=== PATIENT | female | born 1965 | race African-American/Black ===

== ENCOUNTER 2023-07-27 03:49 | Emergency (ER) | payer OTHER ==
[2023-07-27 03:56] VITALS: BMI 30.2
[2023-07-27] MEDS: LIDOCAINE 5% TOPICAL PATCH TP ONE (05:45)
[2023-07-27] MEDS: ACETAMINOPHEN 325 MG TABLET (FP) PO ONE (05:46)
[2023-07-27] MEDS ORDERED: ACETAMINOPHEN 325 MG TABLET (FP) ONE (05:47)
[2023-07-27] MEDS ORDERED: LIDOCAINE 4% PATCH TP ONE (05:48)
[2023-07-27] MEDS: morphine CARPU-JECT 2 MG/1 ML DISP.SYRIN IVPUSH ONE ×2 (06:59→10:49)
[2023-07-27 07:24] LABS: BASO % 1.3 % (0-2.0); EOS % 0.1 % (0-4.5); HEMATOCRIT 31.8 % (32.4-45.2); HEMOGLOBIN 10.2 GM/dL (10.7-15.3); LYMPH % 12.8 % (8-40); MCH 27.4 pg (25.7-33.7); MCHC 32.2 g/dl (32.0-36.0); MEAN CELL VOLUME 85.1 fl (80-96); MEAN PLT VOLUME 6.8 fl (7.5-11.1); MONO % 4.9 % (3.8-10.2); NEUT % 80.9 % (42.8-82.8); PLATELET COUNT 352 10^3/uL (134-434); RBC 3.74 M/mm3 (3.60-5.2); RDW 18.2 % (11.6-15.6); WHITE BLOOD COUNT 10.3 K/mm3 (4.0-10.0)
[2023-07-27 07:39] LABS: POTASSIUM 3.5 mmol/L (3.5-5.1)
[2023-07-27 07:41] LABS: ALBUMIN 3.2 g/dl (3.4-5.0); BLOOD UREA NITROGEN 8.6 mg/dL (7-18)
[2023-07-27 07:44] LABS: CREATININE 0.5 mg/dL (0.55-1.3)
[2023-07-27 07:46] LABS: BILIRUBIN,TOTAL 0.4 mg/dL (0.2-1); TOT PROT 7.9 g/dl (6.4-8.2)
[2023-07-27 07:49] LABS: N-TERMINAL BNP 474.4 pg/ml (5-125)
[2023-07-27 08:32] LABS: INR 1.13 (0.83-1.09); PROTHROMBIN TIME (PATIENT) 12.7 SEC (9.7-13.0)
[2023-07-27 08:50] VITALS: TEMP 98.4
[2023-07-27 12:41] VITALS: BP 170/91; PULSE 105; RESP 20
[2023-07-27] MEDS ORDERED: KETOROLAC TROMETHAMINE 15 MG/ML VIAL ONE (13:24)
[2023-07-27] MEDS: KETOROLAC TROMETHAMINE 15 MG/ML VIAL IVPUSH ONE (13:28)
== END 2023-07-27 14:38 | disposition short-term general hospital (02) ==
LOC: JER 03:49
DX: R07.81 Pleurodynia (principal); W01.0XXA Fall on same level from slipping, tripping and stumbling without subsequent striking against object, initial encounter
CPT/HCPCS: 0241U-QW; 36415; 71045-TC-FY; 71260-TC; 74177-TC; 80053; 83880; 84484; 85025; 85610; 93005; 93010; 99285-25

== ENCOUNTER 2023-08-07 03:18 | Observation (INO) | payer OTHER ==
[2023-08-07 04:27] LABS: BASO % 0.9 % (0-2.0); EOS % 1.6 % (0-4.5); HEMATOCRIT 30.8 % (32.4-45.2); HEMOGLOBIN 10.1 GM/dL (10.7-15.3); LYMPH % 28.9 % (8-40); MCH 27.2 pg (25.7-33.7); MCHC 32.7 g/dl (32.0-36.0); MEAN CELL VOLUME 83.2 fl (80-96); MEAN PLT VOLUME 6.4 fl (7.5-11.1); MONO % 13.4 % (3.8-10.2); NEUT % 55.2 % (42.8-82.8); PLATELET COUNT 350 10^3/uL (134-434); RDW 18.9 % (11.6-15.6); WHITE BLOOD COUNT 7.1 K/mm3 (4.0-10.0)
[2023-08-07 04:37] LABS: INR 2.89 (0.83-1.09); PROTHROMBIN TIME (PATIENT) 31.7 SEC (9.7-13.0)
[2023-08-07 04:39] LABS: ACTIVATED PTT 45.8 SECONDS (25.2-36.5)
[2023-08-07 04:46] LABS: POTASSIUM 3.4 mmol/L (3.5-5.1)
[2023-08-07 04:48] LABS: ALBUMIN 3.1 g/dl (3.4-5.0); BLOOD UREA NITROGEN 7.9 mg/dL (7-18); CALCIUM 8.8 mg/dL (8.5-10.1)
[2023-08-07 04:52] LABS: CREATININE 0.6 mg/dL (0.55-1.3)
[2023-08-07 04:53] LABS: BILIRUBIN,TOTAL 0.5 mg/dL (0.2-1); TOT PROT 7.7 g/dl (6.4-8.2)
[2023-08-07] MEDS ORDERED: FUROSEMIDE 40 MG/4 ML INJECTABLE VIAL ONE (06:17)
[2023-08-07] MEDS ORDERED: POTASSIUM CHLORIDE ORAL LIQUID 20 MEQ/15 ML ONE (06:17)
[2023-08-07] MEDS: POTASSIUM CHLORIDE ORAL LIQUID 20 MEQ/15 ML PO ONE (06:29)
[2023-08-07] MEDS: FUROSEMIDE 40 MG/4 ML INJECTABLE VIAL IVPUSH ONE (06:29)
[2023-08-07] MEDS ORDERED: POLYETHYLENE GLYCOL (HEALTHYLAX) 3350 17 GM PACKET PO PRN (10:02)
[2023-08-07] MEDS ORDERED: ALBUTEROL SO4 HFA INHALER IH PRN ×3 (10:02→10:58)
[2023-08-07] MEDS: FUROSEMIDE 40 MG/4 ML INJECTABLE VIAL IVPUSH SCH (11:13)
[2023-08-07] MEDS: RIVAROXABAN 20 MG TABLET PO SCH (11:13)
[2023-08-07] MEDS: NICOTINE 14 MG/24 HOURS TOPICAL PATCH TD SCH (14:22)
[2023-08-07] MEDS: METHOCARBAMOL 500 MG TABLET PO PRN (18:32)
[2023-08-07] MEDS: ACETAMINOPHEN 1000 MG/100 ML BAG IVPB ONE (19:26)
[2023-08-07] MEDS: TIOTROPIUM BROMIDE 2.5 MCG (SPIRIVA) RESPIMAT INHALER IH SCH (21:27)
[2023-08-07] MEDS: ATORVASTATIN CA 80 MG TABLET (FP) PO SCH (21:27)
[2023-08-08 06:45] VITALS: RESP 18
[2023-08-08 08:14] LABS: BASO % 0.8 % (0-2.0); EOS % 1.1 % (0-4.5); HEMATOCRIT 34.1 % (32.4-45.2); HEMOGLOBIN 10.9 GM/dL (10.7-15.3); LYMPH % 25.6 % (8-40); MCH 26.6 pg (25.7-33.7); MCHC 32.1 g/dl (32.0-36.0); MEAN PLT VOLUME 6.8 fl (7.5-11.1); MONO % 13.2 % (3.8-10.2); NEUT % 59.3 % (42.8-82.8); PLATELET COUNT 380 10^3/uL (134-434); RBC 4.11 M/mm3 (3.60-5.2); RDW 19.6 % (11.6-15.6); WHITE BLOOD COUNT 8.4 K/mm3 (4.0-10.0)
[2023-08-08 08:38] LABS: POTASSIUM 3.2 mmol/L (3.5-5.1)
[2023-08-08 08:40] LABS: ALBUMIN 3.1 g/dl (3.4-5.0); BLOOD UREA NITROGEN 9.1 mg/dL (7-18); CALCIUM 9.1 mg/dL (8.5-10.1); MAGNESIUM 1.8 mg/dL (1.8-2.4)
[2023-08-08 08:42] LABS: CREATININE 0.5 mg/dL (0.55-1.3)
[2023-08-08 08:44] LABS: PHOSPHOROUS 4.4 mg/dL (2.5-4.9)
[2023-08-08 08:45] LABS: TOT PROT 7.9 g/dl (6.4-8.2)
[2023-08-08 08:50] LABS: BILIRUBIN,TOTAL 0.8 mg/dL (0.2-1)
[2023-08-08] MEDS: LORATADINE 10 MG TABLET PO SCH (09:58)
[2023-08-08] MEDS: ASCORBIC ACID 250 MG TABLET (FP) PO SCH (09:58)
[2023-08-08] MEDS: CLOPIDOGREL BISULFATE 75 MG TABLET (FP) PO SCH (09:58)
[2023-08-08] MEDS: FERROUS SO4 325 MG TABLET (FP) PO SCH (09:58)
[2023-08-08] MEDS: PANTOPRAZOLE 40 MG TABLET PO SCH (09:59)
[2023-08-08] MEDS: MAG HYDROX/AL HYDROX/SIMETH 30 ML UNIT-DOSE CUP PO ONE (10:30)
[2023-08-08] MEDS: POTASSIUM CHLORIDE ORAL LIQUID 20 MEQ/15 ML PO ONE (10:59)
[2023-08-08] MEDS: ACETAMINOPHEN 325 MG TABLET (FP) PO PRN (11:45)
[2023-08-08] MEDS: SODIUM CHLORIDE 250 ML IV STA (11:46)
[2023-08-08] MEDS: KCL 10 MEQ IVPB 10 MEQ/100 ML INFUS.BAG IVPB SCH (11:47)
[2023-08-08 13:56] VITALS: BP 109/75; PULSE 97; TEMP 98.2
[2023-08-08] MEDS ORDERED: RIVAROXABAN 20 MG TABLET PO SCH (18:00)
== END 2023-08-08 17:03 | disposition home or self-care (01) ==
LOC: JER 03:18 → JERBED 07:50 → UNDOADMOB 07:50 → INTOOBSV 07:50 → JERBED 08:37 → J5S 08:37 → JERBED 09:54 → J5S 16:25
PROVIDERS: ADMIT Internal Medicine
PROC: 3E033GC Introduction of Other Therapeutic Substance into Peripheral Vein, Percutaneous Approach (ICD-10-PCS; principal; 2023-08-07)
PROC: 3E033NZ Introduction of Analgesics, Hypnotics, Sedatives into Peripheral Vein, Percutaneous Approach (ICD-10-PCS; 2023-08-07)
PROC: 3E0337Z Introduction of Electrolytic and Water Balance Substance into Peripheral Vein, Percutaneous Approach (ICD-10-PCS; 2023-08-07)
DX: I50.33 Acute on chronic diastolic (congestive) heart failure (principal); R06.02 Shortness of breath; I25.10 Atherosclerotic heart disease of native coronary artery without angina pectoris; J44.9 Chronic obstructive pulmonary disease, unspecified; M19.90 Unspecified osteoarthritis, unspecified site; I48.91 Unspecified atrial fibrillation; Z79.01 Long term (current) use of anticoagulants; R06.00 Dyspnea, unspecified; Z72.0 Tobacco use
CPT/HCPCS: 0241U-QW; 36415; 71045-TC-FY; 71046-TC-FY; 80053; 83735; 83880; 84100; 84436; 84443; 84484; 85025; 85610; 85730; 86850; 86900; 86901; 87899; 93005; 93010; 93306-TC; 93971-TC; 96361; 96374; 96375; 96376; 97116-GP; 97161-GP; 99285-25; G0378; J0131

== ENCOUNTER 2024-04-27 13:02 | Emergency (ER) | payer OTHER ==
[2024-04-27 15:19] VITALS: BP 135/75; PULSE 92; RESP 18; TEMP 98; BMI 27.6
== END 2024-04-27 15:23 | disposition home or self-care (01) ==
LOC: JER 13:02
DX: R13.10 Dysphagia, unspecified (principal)
CPT/HCPCS: 99283-25

== ENCOUNTER 2024-05-04 15:57 | Inpatient (IN) | payer OTHER ==
[2024-05-05] MEDS: POTASSIUM CHLORIDE 40 MEQ in SODIUM CHLORIDE 1,000 ML IV SCH (01:48)
[2024-05-05] MEDS: FLU VACCINE (FLULAVAL) PF 45 MCG/0.5 ML SYRINGE 2024-2025 IM ONE (01:49)
[2024-05-05] MEDS ORDERED: ETOMIDATE 20 MG/10 ML VIAL IVPUSH ONE (09:22)
[2024-05-05 09:36] LABS: HEMATOCRIT 37.4 % (32.4-45.2); HEMOGLOBIN 11.8 GM/dL (10.7-15.3); MCHC 31.7 g/dl (32.0-36.0); MEAN CELL VOLUME 85.3 fl (80-96); PLATELET COUNT 255 10^3/uL (134-434); RBC 4.38 M/mm3 (3.60-5.2); RDW 20.7 % (11.6-15.6); WHITE BLOOD COUNT 5.8 K/mm3 (4.0-10.0)
[2024-05-05] MEDS: FAMOTIDINE 20 MG/50 ML IVPB 20 MG/50 ML MG IVPB ONE (09:40)
[2024-05-05 09:45] LABS: INR 1.13 (0.83-1.09); POTASSIUM 3.4 mmol/L (3.5-5.1); PROTHROMBIN TIME (PATIENT) 12.4 SEC (9.7-13.0)
[2024-05-05 09:47] LABS: ALBUMIN 3.1 g/dl (3.4-5.0); BLOOD UREA NITROGEN 8.5 mg/dL (7-18); MAGNESIUM 1.8 mg/dL (1.8-2.4)
[2024-05-05 09:50] LABS: CREATININE 0.5 mg/dL (0.55-1.3)
[2024-05-05 09:51] LABS: PHOSPHOROUS 3.4 mg/dL (2.5-4.9)
[2024-05-05 09:52] LABS: BILIRUBIN,TOTAL 0.8 mg/dL (0.2-1); TOT PROT 8.2 g/dl (6.4-8.2)
[2024-05-05] MEDS ORDERED: ENOXAPARIN NA (PORCINE) 40 MG/0.4 ML DISP.SYRIN SQ SCH (10:00)
[2024-05-05] MEDS ORDERED: ACETAMINOPHEN INJECTION 100 ML ONE (13:01)
[2024-05-05] MEDS: ACETAMINOPHEN 1000 MG/100 ML BAG IVPB ONE ×2 (13:02→21:07)
[2024-05-05] MEDS: ONDANSETRON 4 MG/2 ML VIAL IVPB ONE (16:31)
[2024-05-05] MEDS: ACETAMINOPHEN 1000 MG/100 ML BAG IVPB PRN (17:26)
[2024-05-05] MEDS ORDERED: hydrALAZINE HCL 20 MG/ML VIAL IVPUSH ONE (18:15)
[2024-05-05] MEDS ORDERED: hydrALAZINE HCL 20 MG/ML VIAL IVPUSH PRN (18:17)
[2024-05-05] MEDS ORDERED: ACETAMINOPHEN 1000 MG/100 ML BAG IVPB PRN (18:18)
[2024-05-05] MEDS: KCL 10 MEQ IVPB 10 MEQ/100 ML INFUS.BAG IVPB SCH (18:18)
[2024-05-05] MEDS: hydrALAZINE HCL 20 MG/ML VIAL IVPUSH ONE (18:50)
[2024-05-05] MEDS: amLODIPine BESYLATE 5 MG TABLET (FP) PO SCH (21:07)
[2024-05-05] MEDS ORDERED: MAG HYDROX/AL HYDROX/SIMETH 30 ML UNIT-DOSE CUP PO PRN (21:08)
[2024-05-05] MEDS: ONDANSETRON 4 MG/2 ML VIAL IVPUSH ONE (22:39)
[2024-05-05] MEDS: PANTOPRAZOLE SODIUM 40 MG VIAL IVPUSH SCH (23:11)
[2024-05-06 09:29] LABS: BASO % 0.5 % (0-2.0); EOS % 0.1 % (0-4.5); HEMATOCRIT 39.3 % (32.4-45.2); HEMOGLOBIN 12.8 GM/dL (10.7-15.3); LYMPH % 14.4 % (8-40); MCHC 32.6 g/dl (32.0-36.0); MEAN CELL VOLUME 82.9 fl (80-96); MEAN PLT VOLUME 7.9 fl (7.5-11.1); MONO % 11.1 % (3.8-10.2); NEUT % 73.9 % (42.8-82.8); PLATELET COUNT 308 10^3/uL (134-434); POTASSIUM 3.4 mmol/L (3.5-5.1); RBC 4.74 M/mm3 (3.60-5.2); RDW 19.9 % (11.6-15.6); WHITE BLOOD COUNT 10.2 K/mm3 (4.0-10.0)
[2024-05-06 09:31] LABS: CALCIUM 9.3 mg/dL (8.5-10.1); MAGNESIUM 1.3 mg/dL (1.8-2.4)
[2024-05-06 09:33] LABS: ALBUMIN 3.2 g/dl (3.4-5.0); BLOOD UREA NITROGEN 7.5 mg/dL (7-18)
[2024-05-06 09:35] LABS: CREATININE 0.5 mg/dL (0.55-1.3)
[2024-05-06 09:36] LABS: PHOSPHOROUS 3.4 mg/dL (2.5-4.9); TOT PROT 8.5 g/dl (6.4-8.2)
[2024-05-06 09:37] LABS: BILIRUBIN,TOTAL 0.7 mg/dL (0.2-1)
[2024-05-06] MEDS: LISINOPRIL 10 MG TABLET PO SCH (10:12)
[2024-05-06 11:40] VITALS: BMI 25.7
[2024-05-06] MEDS: POTASSIUM CHLORIDE 40 MEQ in SODIUM CHLORIDE 1,000 ML IV SCH (12:40)
[2024-05-06] MEDS: AMINO ACIDS 4.25%/D5W 1,000 ML IV SCH (17:32)
[2024-05-06] MEDS: MAGNESIUM 2GM/50ML STERILE WATER IVPB IVPB ONE (18:13)
[2024-05-06] MEDS: POTASSIUM CHLORIDE 20 MEQ in AMINO ACIDS 4.25%/D5W 1,000 ML IV SCH (19:24)
[2024-05-06] MEDS: HEPARIN NA (PORCINE) 5,000 UNITS/ML 1ML VIAL SQ SCH (21:23)
[2024-05-06] MEDS: ATORVASTATIN CA 80 MG TABLET (FP) PO SCH (21:23)
[2024-05-07 07:59] LABS: BASO % 0.6 % (0-2.0); EOS % 0.2 % (0-4.5); HEMATOCRIT 38.5 % (32.4-45.2); LYMPH % 13.9 % (8-40); MCH 26.5 pg (25.7-33.7); MCHC 31.2 g/dl (32.0-36.0); MEAN CELL VOLUME 84.9 fl (80-96); MEAN PLT VOLUME 8.2 fl (7.5-11.1); MONO % 10.7 % (3.8-10.2); NEUT % 74.6 % (42.8-82.8); PLATELET COUNT 296 10^3/uL (134-434); RBC 4.54 M/mm3 (3.60-5.2); RDW 20.2 % (11.6-15.6); WHITE BLOOD COUNT 9.3 K/mm3 (4.0-10.0)
[2024-05-07 08:22] LABS: POTASSIUM 3.4 mmol/L (3.5-5.1)
[2024-05-07 08:28] LABS: BLOOD UREA NITROGEN 13.6 mg/dL (7-18)
[2024-05-07 08:29] LABS: ALBUMIN 2.8 g/dl (3.4-5.0); CALCIUM 8.8 mg/dL (8.5-10.1)
[2024-05-07 08:30] LABS: CREATININE 0.6 mg/dL (0.55-1.3)
[2024-05-07 08:32] LABS: BILIRUBIN,TOTAL 0.7 mg/dL (0.2-1); TOT PROT 7.4 g/dl (6.4-8.2)
[2024-05-07] MEDS: ONDANSETRON 4 MG/2 ML VIAL IVPUSH ONE (09:56)
[2024-05-07] MEDS: KCL 10 MEQ IVPB 10 MEQ/100 ML INFUS.BAG IVPB SCH (16:27)
[2024-05-08 06:13] VITALS: RESP 16
[2024-05-08 08:43] LABS: EOS % 0.8 % (0-4.5); HEMATOCRIT 37.9 % (32.4-45.2); HEMOGLOBIN 11.6 GM/dL (10.7-15.3); LYMPH % 15.2 % (8-40); MCH 25.8 pg (25.7-33.7); MCHC 30.7 g/dl (32.0-36.0); MEAN PLT VOLUME 8.2 fl (7.5-11.1); MONO % 12.5 % (3.8-10.2); NEUT % 70.5 % (42.8-82.8); PLATELET COUNT 299 10^3/uL (134-434); RBC 4.51 M/mm3 (3.60-5.2); RDW 19.8 % (11.6-15.6); WHITE BLOOD COUNT 8.6 K/mm3 (4.0-10.0)
[2024-05-08 09:14] LABS: CALCIUM 8.8 mg/dL (8.5-10.1)
[2024-05-08 09:16] LABS: ALBUMIN 2.7 g/dl (3.4-5.0); BLOOD UREA NITROGEN 14.6 mg/dL (7-18); MAGNESIUM 1.8 mg/dL (1.8-2.4)
[2024-05-08 09:18] LABS: CREATININE 0.4 mg/dL (0.55-1.3); TOT PROT 7.2 g/dl (6.4-8.2)
[2024-05-08 09:42] LABS: POTASSIUM 3.3 mmol/L (3.5-5.1)
[2024-05-08 11:20] VITALS: BP 100/60; PULSE 97; TEMP 98.3
== END 2024-05-08 12:30 | disposition home or self-care (01) | DRG 240 ==
LOC: JER 15:57 → JERBED 19:23 → OBSVTOIN 19:23 → J7W 20:03
PROVIDERS: ADMIT Internal Medicine
PROC: 0DB58ZX Excision of Esophagus, Via Natural or Artificial Opening Endoscopic, Diagnostic (ICD-10-PCS; 2024-05-05)
PROC: 0D758DZ Dilation of Esophagus with Intraluminal Device, Via Natural or Artificial Opening Endoscopic (ICD-10-PCS; principal; 2024-05-05 09:30)
DX: C15.9 Malignant neoplasm of esophagus, unspecified (principal); I48.91 Unspecified atrial fibrillation; I11.0 Hypertensive heart disease with heart failure; I50.32 Chronic diastolic (congestive) heart failure; K22.2 Esophageal obstruction; I25.10 Atherosclerotic heart disease of native coronary artery without angina pectoris; J44.9 Chronic obstructive pulmonary disease, unspecified; E87.6 Hypokalemia; K21.9 Gastro-esophageal reflux disease without esophagitis; K76.9 Liver disease, unspecified; R13.10 Dysphagia, unspecified; E43 Unspecified severe protein-calorie malnutrition; Z68.25 Body mass index [BMI] 25.0-25.9, adult; E83.42 Hypomagnesemia; R11.10 Vomiting, unspecified; Z95.5 Presence of coronary angioplasty implant and graft; Z96.651 Presence of right artificial knee joint
CPT/HCPCS: 36415; 74177-TC; 80053; 80061; 82962; 83735; 84100; 85025; 85027; 85610; 86850; 86900; 86901; 88305-TC; 88341-TC; 88342-TC; 90656; 93005; 93010; 99285-25; G0008; J0131; J1644

== ENCOUNTER 2024-05-19 05:35 | Day surgery (SDC) | payer OTHER ==
[2024-05-14 15:30] VITALS: BMI 26.0
[2024-05-19] MEDS ORDERED: MIDAZOLAM HCL 2 MG/2 ML SINGLE DOSE VIAL ONE (12:28)
[2024-05-19] MEDS ORDERED: ONDANSETRON 4 MG/2 ML VIAL ONE (12:28)
[2024-05-19 14:27] VITALS: TEMP 98
[2024-05-19 15:21] VITALS: BP 149/80; PULSE 85; RESP 20
== END 2024-05-19 15:22 | disposition home or self-care (01) ==
LOC: JASU-ENDO 05:35
PROVIDERS: ATTEND Internal Medicine Gastroenterology
PROC: 0DC28ZZ Extirpation of Matter from Middle Esophagus, Via Natural or Artificial Opening Endoscopic (ICD-10-PCS; principal; 2024-05-19 12:30)
DX: C15.9 Malignant neoplasm of esophagus, unspecified (principal); K22.10 Ulcer of esophagus without bleeding; K44.9 Diaphragmatic hernia without obstruction or gangrene; I11.0 Hypertensive heart disease with heart failure; I50.9 Heart failure, unspecified

== ENCOUNTER 2024-07-22 14:00 | Day surgery (SDC) | payer OTHER ==
[2024-07-22] MEDS: PORTA CATH FLUSH 10 ML IVPUSH PRN (16:05)
[2024-07-22 16:25] VITALS: TEMP 97.8
[2024-07-22 16:35] VITALS: BP 97/67; PULSE 94; RESP 18
== END 2024-07-22 16:10 | disposition home or self-care (01) ==
LOC: JONCCHEMO 14:00
PROVIDERS: ATTEND Internal Medicine Hematology & Oncology
PROC: 3E0437Z Introduction of Electrolytic and Water Balance Substance into Central Vein, Percutaneous Approach (ICD-10-PCS; principal; 2024-07-22)
DX: C15.4 Malignant neoplasm of middle third of esophagus (principal)
CPT/HCPCS: 96360

== ENCOUNTER 2024-08-18 09:27 | Day surgery (SDC) | payer OTHER ==
[~2024-08-18 09:27] MED LIST: DEXTROSE 5% IVPB ONE; FLUOROURACIL 1,000 MG/20 ML VIAL IVPUSH ONE; FLUOROURACIL CP ONE; FOSAPREPITANT DIMEGLUMINE 150 MG in SODIUM CHLORIDE 145 ML IVPB ONE; LEUCOVORIN IVPB ONE; NIVOLUMAB 240 MG in SODIUM CHLORIDE 100 ML IVPB ONE; PALONOSETRON HCL 0.25 MG/5 ML VIAL IVPUSH ONE; SODIUM CHLORIDE 250 ML IV ONE; SODIUM CHLORIDE CP ONE; WATER IVPB ONE
[2024-08-18] MEDS: SODIUM CHLORIDE 250 ML IV ONE (09:52)
[2024-08-18] MEDS: FOSAPREPITANT DIMEGLUMINE 150 MG in SODIUM CHLORIDE 145 ML IVPB ONE (09:52)
[2024-08-18] MEDS: PALONOSETRON HCL 0.25 MG/5 ML VIAL IVPUSH ONE (09:52)
[2024-08-18 09:53] VITALS: BP 105/67; PULSE 83; RESP 20; TEMP 97.5
[2024-08-18] MEDS: NIVOLUMAB 240 MG in SODIUM CHLORIDE 100 ML IVPB ONE (10:26)
[2024-08-18] MEDS ORDERED: PORTA CATH FLUSH 10 ML IVPUSH PRN (10:34)
[2024-08-18] MEDS: LEUCOVORIN IVPB ONE (11:08)
[2024-08-18] MEDS: WATER IVPB ONE (11:08)
[2024-08-18] MEDS: DEXTROSE 5% IVPB ONE (11:08)
[2024-08-18] MEDS: FLUOROURACIL 1,000 MG/20 ML VIAL IVPUSH ONE (13:15)
[2024-08-18] MEDS: SODIUM CHLORIDE CP ONE (13:16)
[2024-08-18] MEDS: FLUOROURACIL CP ONE (13:16)
== END 2024-08-18 14:20 | disposition home or self-care (01) ==
LOC: JONCCHEMO 09:27 → J7W 09:28 → JONCCHEMO 14:20
PROVIDERS: ATTEND Internal Medicine Hematology & Oncology
DX: Z51.11 Encounter for antineoplastic chemotherapy (principal); C16.9 Malignant neoplasm of stomach, unspecified; C78.89 Secondary malignant neoplasm of other digestive organs
CPT/HCPCS: 96367; 96375; 96411; 96413; G0498; J1453; J9299

== ENCOUNTER 2024-09-15 10:15 | Day surgery (SDC) | payer OTHER ==
[2024-09-15 10:56] LABS: HEMATOCRIT 31.8 % (34.1-44.9); HEMOGLOBIN 10.5 g/dL (11.2-15.7); MEAN CELL VOLUME 87.1 fl (79.4-94.8); MEAN PLT VOLUME 9.2 fl (9.4-12.3); PLATELET COUNT 192 x10^3/uL (182-369); RDW 18.4 % (12.3-16.6)
[2024-09-15 11:16] LABS: CHLORIDE 95 mmol/L (98-107); POTASSIUM 3.8 mmol/L (3.5-5.1); SODIUM 130 mmol/L (136-145)
[2024-09-15] MEDS: SODIUM CHLORIDE 250 ML IV ONE (11:16)
[2024-09-15 11:19] LABS: ALBUMIN 3.2 g/dl (3.4-5.0); ANION GAP 10 mmol/L (4-13); CALCIUM 9.3 mg/dL (8.5-10.1); CO2 26 mmol/L (21-32)
[2024-09-15 11:20] LABS: BLOOD UREA NITROGEN 13.9 mg/dL (7-18)
[2024-09-15 11:21] LABS: AMYLASE 23 U/L (25-115)
[2024-09-15 11:22] LABS: CREATININE 0.5 mg/dL (0.55-1.3); SGOT/AST 19 U/L (15-37); SGPT/ALT 14 U/L (13-61)
[2024-09-15 11:24] LABS: BILIRUBIN,DIRECT 0.6 mg/dL (0.0-0.2); BILIRUBIN,TOTAL 1.1 mg/dL (0.2-1)
[2024-09-15 11:25] LABS: ALK PHOS 122 U/L (45-117)
[2024-09-15] MEDS: FOSAPREPITANT DIMEGLUMINE 150 MG in SODIUM CHLORIDE 145 ML IVPB ONE (11:47)
[2024-09-15 12:00] LABS: GLUCOSE,RANDOM 102 mg/dL (74-106); TOT PROT 7.3 g/dl (6.4-8.2)
[2024-09-15] MEDS: PALONOSETRON HCL 0.25 MG/5 ML VIAL IVPUSH ONE (12:22)
[2024-09-15] MEDS: NIVOLUMAB 240 MG in SODIUM CHLORIDE 100 ML IVPB ONE (12:23)
[2024-09-15] MEDS: DEXTROSE 5% IVPB ONE (12:52)
[2024-09-15] MEDS: LEUCOVORIN IVPB ONE (12:52)
[2024-09-15] MEDS: WATER IVPB ONE (12:52)
[2024-09-15] MEDS: FLUOROURACIL 1,000 MG/20 ML VIAL IVPUSH ONE (14:55)
[2024-09-15] MEDS: SODIUM CHLORIDE CP ONE (14:55)
[2024-09-15] MEDS: FLUOROURACIL CP ONE (14:55)
[2024-09-15 18:25] VITALS: BP 114/80; PULSE 91; RESP 20; TEMP 98.2
[2024-09-15] MEDS ORDERED: PORTA CATH FLUSH 10 ML IVPUSH PRN (18:25)
== END 2024-09-15 15:20 | disposition home or self-care (01) ==
LOC: JONCCHEMO 10:15 → J7W 10:22 → JONCCHEMO 15:20
PROVIDERS: ATTEND Internal Medicine Hematology & Oncology
PROC: 3E04305 Introduction of Other Antineoplastic into Central Vein, Percutaneous Approach (ICD-10-PCS; principal; 2024-09-15)
PROC: 3E043GC Introduction of Other Therapeutic Substance into Central Vein, Percutaneous Approach (ICD-10-PCS; 2024-09-15)
DX: Z51.11 Encounter for antineoplastic chemotherapy (principal); C15.4 Malignant neoplasm of middle third of esophagus
CPT/HCPCS: 36415; 80048; 80076; 82150; 83690; 84439; 84443; 85025; G0498; J1453; J9299

== ENCOUNTER 2024-09-28 10:48 | Day surgery (SDC) | payer OTHER ==
[2024-09-28] MEDS: SODIUM CHLORIDE 250 ML IV ONE (11:36)
[2024-09-28 11:53] LABS: MCHC 32.3 g/dl (32.2-35.5); MEAN CELL VOLUME 88.9 fl (79.4-94.8); MEAN PLT VOLUME 8.9 fl (9.4-12.3); RDW 19.6 % (12.3-16.6)
[2024-09-28 12:21] LABS: CO2 25 mmol/L (21-32); GLUCOSE,RANDOM 87 mg/dL (74-106)
[2024-09-28 12:24] LABS: CREATININE 0.8 mg/dL (0.55-1.3); SGPT/ALT 16 U/L (13-61)
[2024-09-28 12:25] LABS: SGOT/AST 19 U/L (15-37)
[2024-09-28 12:26] LABS: TOT PROT 7.6 g/dl (6.4-8.2)
[2024-09-28 12:27] LABS: ALK PHOS 114 U/L (45-117)
[2024-09-28] MEDS: FOSAPREPITANT DIMEGLUMINE 150 MG in SODIUM CHLORIDE 145 ML IVPB ONE (12:45)
[2024-09-28] MEDS: PALONOSETRON HCL 0.25 MG/5 ML VIAL IVPUSH ONE (12:45)
[2024-09-28] MEDS: NIVOLUMAB 240 MG in SODIUM CHLORIDE 100 ML IVPB ONE (13:20)
[2024-09-28] MEDS: LEUCOVORIN IVPB ONE (13:50)
[2024-09-28] MEDS: WATER IVPB ONE (13:50)
[2024-09-28] MEDS: DEXTROSE 5% IVPB ONE (13:50)
[2024-09-28] MEDS: FLUOROURACIL CP ONE (15:46)
[2024-09-28] MEDS: FLUOROURACIL 1,000 MG/20 ML VIAL IVPUSH ONE (15:46)
[2024-09-28] MEDS: SODIUM CHLORIDE CP ONE (15:46)
[2024-09-28 18:09] VITALS: RESP 20
[2024-09-28 18:23] VITALS: BP 105/79; PULSE 76; TEMP 97.7
[2024-09-28] MEDS ORDERED: PORTA CATH FLUSH 10 ML IVPUSH PRN (18:23)
== END 2024-09-28 15:55 | disposition home or self-care (01) ==
LOC: JONCCHEMO 10:48 → J7W 10:53 → JONCCHEMO 15:55
PROVIDERS: ATTEND Internal Medicine Hematology & Oncology
DX: Z51.11 Encounter for antineoplastic chemotherapy (principal); C15.4 Malignant neoplasm of middle third of esophagus
CPT/HCPCS: 36415; 80048; 80076; 82150; 83690; 84439; 84443; 85025; 96367; 96375; 96411; 96413; G0498; J1453; J9299

== ENCOUNTER 2024-11-24 18:57 | Inpatient (IN) | payer OTHER ==
[2024-11-24] MEDS ORDERED: SODIUM CHLORIDE 0.9% 1000 ML INFUS.BAG IV PRN (19:04)
[2024-11-24] MEDS ORDERED: NOREPINEPHRINE 0.9 % NACL 8 MG/250 ML BAG IVPB ONE (19:38)
[2024-11-24] MEDS ORDERED: KETAMINE HCL 200 MG/20 ML VIAL ONE (19:42)
[2024-11-24] MEDS ORDERED: MIDAZOLAM HCL 5 MG/1 ML Single Dose Vial ONE (19:45)
[2024-11-24] MEDS: NOREPINEPHRINE BITARTRATE 16,000 MCG in SODIUM CHLORIDE 484 ML IV SCH (19:45)
[2024-11-24] MEDS ORDERED: MIDAZOLAM IN 0.9 % SOD.CHLORID 1 MG/1 ML PLAST..BAG ONE (19:52)
[2024-11-24] MEDS: MIDAZOLAM HCL 2 MG/2 ML SINGLE DOSE VIAL IVPUSH ONE (20:36)
[2024-11-24] MEDS: KETAMINE HCL 200 MG/20 ML VIAL IVPUSH ONE (20:36)
[2024-11-24] MEDS: SODIUM CHLORIDE 0.9% 1000 ML INFUS.BAG IV STA (20:37)
[2024-11-24] MEDS: MIDAZOLAM IN 0.9 % SOD.CHLORID 100 MG/100 ML PLAST..BAG IVPB SCH (20:37)
[2024-11-24] MEDS ORDERED: PIPERACILLIN/TAZOB 3.375 GM 3.375 GM/50 ML BAG IVPB ONE (20:40)
[2024-11-24] MEDS ORDERED: VANCOMYCIN 1 GM PREMIX (F) 1 GM/200 ML BAG ONE (20:40)
[2024-11-24] MEDS ORDERED: HYDROCORTISONE SOD SUCCINATE 100 MG/2 ML VIAL ONE (20:40)
[2024-11-24 20:46] LABS: ABSOLUTE IMMATURE GRANULOCYTES 0.89 x10^3/uL (0.0-0.031); BASOPHILS # 0.10 x10^3/uL (0.01-0.08); EOSINOPHIL % 0.0 % (0.7-5.8); EOSINOPHILS # 0.01 x10^3/uL (0.04-0.36); MCHC 29.3 g/dl (32.2-35.5); MEAN CELL VOLUME 108.6 fl (79.4-94.8); MEAN PLT VOLUME 9.9 fl (9.4-12.3); MONOCYTE # 1.11 x10^3/uL (0.24-0.86); MONOCYTE % 3.6 % (4.7-12.5); RDW 20.2 % (12.3-16.6)
[2024-11-24 20:50] LABS: INR 1.5 (0.83-1.09); PROTHROMBIN TIME (PATIENT) 16.3 SEC (9.7-13.0)
[2024-11-24 20:53] LABS: ACTIVATED PTT 29.3 SECONDS (25.2-36.5)
[2024-11-24] MEDS: VANCOMYCIN 1,000 MG in DEXTROSE 5%-WATER - 250 ML IVPB ONE (21:06)
[2024-11-24] MEDS: PIPERACILLIN/TAZOB 3.375 GM 3.375 GM in DEXTROSE 5%-WATER - 50 ML IVPB ONE (21:06)
[2024-11-24] MEDS: HYDROCORTISONE SOD SUCCINATE 100 MG/2 ML VIAL IVPB ONE (21:06)
[2024-11-24 21:08] LABS: GLUCOSE,RANDOM 116 mg/dL (74-106)
[2024-11-24 21:09] LABS: TOT PROT 6.8 g/dl (6.4-8.2)
[2024-11-24 21:10] LABS: CO2 12 mmol/L (21-32)
[2024-11-24 21:11] LABS: ALK PHOS 173 U/L (40-150)
[2024-11-24 21:14] LABS: CREATININE 2.41 mg/dL (0.55-1.3); SGOT/AST 31 U/L (5-34); SGPT/ALT < 6 U/L (0-55)
[2024-11-24 21:17] LABS: EPI CELLS >36 /uL (0-25.1); HYALINE CASTS 9 /uL (0-3.1); URINE APPEARANCE CLOUDY; URINE BACTERIA 22 /uL (0-1359); URINE BILIRUBIN 1+ (NEGATIVE); URINE COLOR DK YELLOW; URINE GLUCOSE (UA) NEGATIVE (NEGATIVE); URINE KETONE NEGATIVE (NEGATIVE); URINE LEUK ESTERASE 1+ (NEGATIVE); URINE NITRITE NEGATIVE (NEGATIVE); URINE PROTEIN TRACE (NEGATIVE); URINE UROBILINOGEN 2.0 mg/dL (0.2-1.0); URINE WBC 43 /uL (0-25.8)
[2024-11-24 21:34] LABS: URINE RBC 55.0 /uL (0-23.9)
[2024-11-24 21:47] LABS: LACTIC ACID > 13.3 mmol/L (0.4-2.0)
[2024-11-24 22:35] VITALS: TEMP 96.9; BMI 14.5
[2024-11-24] MEDS ORDERED: LORazepam 2 MG/ML SDV VIAL IVPUSH PRN (22:35)
[2024-11-24] MEDS: morphine CARPU-JECT 2 MG/1 ML DISP.SYRIN IVPUSH PRN (23:05)
[2024-11-24 23:10] LABS: HIV INTERPRETATION NEGATIVE (NEGATIVE)
[2024-11-24 23:11] LABS: HCV DIAGNOSTIC IN-HOUSE W/RFLX NON-REACTIVE (NONREACTIVE)
[2024-11-25 02:24] VITALS: BP 53/30; PULSE 96; RESP 16
== END 2024-11-25 02:20 | disposition expired | DRG 720 ==
LOC: JER 18:57 → JERBED 20:35 → JICU 22:00
PROVIDERS: ADMIT Internal Medicine Pulmonary Disease; ATTEND Internal Medicine Pulmonary Disease
PROC: 5A1935Z Respiratory Ventilation, Less than 24 Consecutive Hours (ICD-10-PCS; principal; 2024-11-24)
PROC: 0BH17EZ Insertion of Endotracheal Airway into Trachea, Via Natural or Artificial Opening (ICD-10-PCS; 2024-11-24)
DX: A41.9 Sepsis, unspecified organism (principal); J96.01 Acute respiratory failure with hypoxia; J69.0 Pneumonitis due to inhalation of food and vomit; R65.21 Severe sepsis with septic shock; J44.1 Chronic obstructive pulmonary disease with (acute) exacerbation; N17.9 Acute kidney failure, unspecified; E87.20 Acidosis, unspecified; I11.0 Hypertensive heart disease with heart failure; I50.9 Heart failure, unspecified; J93.9 Pneumothorax, unspecified; E78.5 Hyperlipidemia, unspecified; I25.10 Atherosclerotic heart disease of native coronary artery without angina pectoris; K21.9 Gastro-esophageal reflux disease without esophagitis; R64 Cachexia; Z68.1 Body mass index [BMI] 19.9 or less, adult
CPT/HCPCS: 36415; 71045-TC-FY; 80053; 81003; 82962; 83605; 83735; 83880; 84100; 84484; 85025; 85610; 85730; 86803; 87040; 87086; 87389; 93005; 93010; 93308; 94002; 99291